=== PATIENT | male | born 1975 | race African-American/Black ===

== ENCOUNTER 2019-02-19 06:38 | Day surgery (SDC) | payer OTHER ==
[2019-02-16 10:59] VITALS: BMI 29.7
[2019-02-19] MEDS ORDERED: Midazolam HCl 2 mg/2 ml Vial ONE (07:44)
[2019-02-19] MEDS ORDERED: Fentanyl 100 MCG/2 ML VIAL ONE ×4 (07:44→10:15)
[2019-02-19 07:55] LABS: #Basophils 0.1 thou/uL (0.0-0.2); #Eosinphils 0.1 thou/uL (0.0-0.7); #Lymphocytes 1.8 thou/uL (1.20-3.40); #Monocytes 0.4 thou/uL (0.11-0.59); #Neutrophils 1.3 thou/uL (1.40-6.50); %Eosinophils 2.4 % (0.0-10.0); %Lymphocytes 49.8 % (21.0-51.0); %Monocytes 10.7 % (0.0-10.0); %Neutrophils 35.1 % (42.0-75.0); Hemoglobin 14.6 g/dL (14.0-18.0); Mean Corpuscular HGB CONC 34.2 g/dL (32.0-36.0); Mean Corpuscular Hemoglobin 32.1 pg (27.0-31.0); Mean Corpuscular Volume 93.7 fL (78.0-98.0); Mean Platelet Volume 8.6 fL (7.4-10.4); Platelet Count 222 thou/uL (130-400); RBC Distribution Width 11.3 % (11.5-14.5); Red Blood Cell (RBC) Count 4.57 mill/uL (4.70-6.10); White Blood Cell (WBC) Count 3.6 thou/uL (4.8-10.8)
[2019-02-19] MEDS ORDERED: Sodium Chloride 0.9% 10 ML ONE (07:56)
[2019-02-19 08:17] LABS: Anion Gap 11 mmol/L (10-20); BUN (Urea Nitrogen) 14 mg/dL (8.9-20.6); Calc. Creatinine Clearance 140 mL/min (70-130); Calcium 9.7 mg/dL (7.8-10.44); Carbon Dioxide 27 mmol/L (22-29); Chloride 107 mmol/L (98-107); Estimated GFR-MDRD Greater than 90; Glucose 97 mg/dL (70-105); Potassium 3.8 mmol/L (3.5-5.1); Sodium 141 mmol/L (136-145)
[2019-02-19] MEDS ORDERED: SUGAMMADEX SODIUM 200 MG/2 ML VIAL ONE (09:23)
--- NOTE | 2019-02-19 14:35 | OP ---
DATE OF PROCEDURE: 02/19/2019 MATERIAL FLOW ANALYST: Anibal Dutta PA-C PROCEDURE PERFORMED: Anterior cervical diskectomy C4-C5 and C5-C6, interbody arthrodesis, intervertebral biomechanical device, local morselized autograft, demineralized bone matrix, anterior titanium instrumentation, C4-C5 and C5-C6. DESCRIPTION OF PROCEDURE: The patient was brought to the operating room and intubated. He was positioned supine with head in modest extension on gel-filled donut. An incision was made in the right precervical area and dissected medial sternocleidomastoid muscle. We identified the anterior cervical spinal, and the level was confirmed by x-ray. We debrided the anterior osteophytes, placed distraction across the disk space and using the operative microscope and microdissection techniques, completely decompressed the intervertebral disks at C4-C5 and C5-C6 to the level of the dura. Once a complete decompression had been secured, the bony endplates were decorticated for the purpose of arthrodesis and appropriate-sized intervertebral biomechanical PEEK device was brought into the field. It was filled with demineralized bone matrix and local morselized autograft, and tapped into place securely at C4-C5 and C5-C6. Next, an anterior plate was brought into the field and secured to C4, C5, and C6 using two 14-mm screws at each level. The wound was then extensively irrigated and MAC hemostasis was secured and the wound was closed in anatomic layers. Job ID: [id number]
== END 2019-02-19 12:56 | disposition home or self-care (01) ==
LOC: SDC 06:38
PROVIDERS: ATTEND Neurological Surgery
PROC: 0RT30ZZ Resection of Cervical Vertebral Disc, Open Approach (ICD-10-PCS; principal; 2019-02-19)
PROC: 0RG2071 Fusion of 2 or more Cervical Vertebral Joints with Autologous Tissue Substitute, Posterior Approach, Posterior Column, Open Approach (ICD-10-PCS; principal; 2019-02-19)
PROC: 0RG20A0 Fusion of 2 or more Cervical Vertebral Joints with Interbody Fusion Device, Anterior Approach, Anterior Column, Open Approach (ICD-10-PCS; principal; 2019-02-19)
PROC: 0RG2070 Fusion of 2 or more Cervical Vertebral Joints with Autologous Tissue Substitute, Anterior Approach, Anterior Column, Open Approach (ICD-10-PCS; principal; 2019-02-19)
DX: M47.12 Other spondylosis with myelopathy, cervical region (principal); M19.90 Unspecified osteoarthritis, unspecified site
CPT/HCPCS: 76000; 80048; 85025; 93005; 93010; C1713; C1776; J0131; J0690; J2250; J3010; J3490

== ENCOUNTER 2019-03-08 16:08 | Outpatient (CLI) | payer OTHER ==
--- NOTE | 2019-03-08 16:23 | RAD ---
EXAM: Cervical spine 3 views: HISTORY: Cervical myelopathy, follow-up surgery COMPARISON: None FINDINGS: Anterior cervical fusion changes at 4-C5 and C5-C6 with intradiscal prosthesis. Minimal prevertebral soft tissue swelling. No evidence for acute fracture or dislocation involving the visualized spine. There are disc osteophytosis and facet arthrosis changes. No evidence for malalignment. No evidence for a bone lesion. IMPRESSION: Spondylosis. Anterior cervical fusion changes. No significant acute process.
== END 2019-03-08 16:09 | disposition home or self-care (01) ==
LOC: TBSIIMAG 16:08
PROVIDERS: ATTEND Neurological Surgery
DX: M47.12 Other spondylosis with myelopathy, cervical region (principal); Z98.1 Arthrodesis status
CPT/HCPCS: 72040

== ENCOUNTER 2020-02-18 06:55 | Day surgery (SDC) | payer OTHER ==
[2020-02-13 11:17] VITALS: BMI 31.1
[2020-02-18] MEDS ORDERED: Fentanyl 100 MCG/2 ML VIAL ONE ×4 (09:46→12:34)
[2020-02-18] MEDS ORDERED: HYDROmorphone 2 MG/ML VIAL ONE (10:47)
[2020-02-18] MEDS ORDERED: Tamsulosin HCl 0.4 MG CAP ONE (11:29)
[2020-02-18] MEDS ORDERED: Dexamethasone 20 MG/5 ML VIAL ONE (12:16)
[2020-02-18] MEDS ORDERED: Glycopyrrolate 0.2 MG/ML 5 ML SYRINGE ONE (12:16)
[2020-02-18] MEDS ORDERED: Ondansetron PF 4 MG/2 ML Vial ONE (12:16)
[2020-02-18] MEDS ORDERED: Lidocaine 1% PF 5 ML VIAL ONE (12:16)
[2020-02-18] MEDS ORDERED: Rocuronium Bromide 10 MG/ML (10ML VIAL) ONE (12:16)
[2020-02-18] MEDS ORDERED: PROPOFOL 200 MG/20 ML VIAL ONE (12:16)
--- NOTE | 2020-02-18 12:18 | OP ---
DATE OF PROCEDURE: 02/18/2020 BOX CAR WASHER: Maggy Sun PA-C PROCEDURE PERFORMED: Left L3-L4 laminectomy, facetectomy, foraminotomy, diskectomy, interbody arthrodesis, intervertebral biomechanical device, local morselized autograft, demineralized bone matrix, posterolateral arthrodesis, pedicle screw instrumentation left L3-L4. DESCRIPTION OF PROCEDURE: The patient was brought to the operating room and intubated. He was rolled in prone position on gel-filled chest rolls. An incision was made exposing L3 and L4 and the level was confirmed by x-ray. We performed left L3-L4 laminectomy, facetectomy, and foraminotomy, identified the left L3-L4 disk and a small disk extrusion was identified and removed. After complete decompression was secured, the disk itself was incised and debrided and the bony endplates decorticated for the purpose of arthrodesis. An appropriate-sized intervertebral biomechanical PEEK device was brought into the field, filled with demineralized bone matrix and local morselized autograft, tapped in place securely at L3-L4. Next, pedicle screws were placed at left L3 and left L4 using lateral fluoroscopic guidance and the positioning was confirmed by x-ray. Rocco was secured between the screws, connected by nuts, which were final tightened. The wound was then extensively irrigated and MAC hemostasis was secured. Vancomycin powder was applied and the wound was then closed in anatomic layers. Job ID: [id number]
[2020-02-18] MEDS ORDERED: HYDROcodone/Acetaminophen 5/325 mg Tablet ONE (16:11)
== END 2020-02-18 17:00 | disposition home or self-care (01) ==
LOC: SDC 06:55
PROVIDERS: ATTEND Neurological Surgery
PROC: 0SG00AJ Fusion of Lumbar Vertebral Joint with Interbody Fusion Device, Posterior Approach, Anterior Column, Open Approach (ICD-10-PCS; principal; 2020-02-18)
PROC: 0ST20ZZ Resection of Lumbar Vertebral Disc, Open Approach (ICD-10-PCS; principal; 2020-02-18)
DX: M54.16 Radiculopathy, lumbar region (principal); F32.9 Major depressive disorder, single episode, unspecified; Z79.899 Other long term (current) drug therapy
CPT/HCPCS: 76000; C1713; C1768; J0690; J1100; J1170; J2405; J2704; J3010; J3370; J3490

== ENCOUNTER 2020-03-06 09:39 | Outpatient (CLI) | payer OTHER ==
--- NOTE | 2020-03-06 11:30 | RAD ---
LUMBAR SPINE 2 VIEWS: Date: 03/06/2020 HISTORY: Follow-up surgery, lumbar radiculopathy. FINDINGS: Postop changes at L3-L4 with left-sided pedicle screw fixation and intradiscal prosthesis without beatriz dence for malalignment. No prior imaging. IMPRESSION: Postoperative changes L3-L4. No malalignment. POS: [facility]
== END 2020-03-06 09:40 | disposition home or self-care (01) ==
LOC: TBSIIMAG 09:39
PROVIDERS: ATTEND Neurological Surgery
DX: M54.16 Radiculopathy, lumbar region (principal); Z98.890 Other specified postprocedural states
CPT/HCPCS: 72100